=== PATIENT | male | born 1985 | race Caucasian/White ===

== ENCOUNTER 2022-01-28 14:47 | Emergency (ER) | payer OTHER, SELFPAY ==
[2022-01-28 14:47] VITALS: BP 159/101; PULSE 100; RESP 16; TEMP 36.1; O2SAT 96; BMI 31.5
[2022-01-28] MEDS: OXYMETAZOLINE NASAL SPRAY 15 ML 2 SPRAYS NASAL (15:03)
--- NOTE | 2022-01-28 15:38 | ED_ITS ---
HPI - Epistaxis General Chief complaint: Nasal Problem Stated complaint: Nose Bleed Time Seen by Provider: 01/28/22 15:36 Source: patient Mode of arrival: Ambulatory Limitations: no limitations History of Present Illness HPI Narrative: This is a 36-year-old male who presents with epistaxis from the left side. Patient states he has had some mild bleeding for the last day or so. He had nose bleeds at a young age had cautery but has not had any in many years. He states he was camping recently they had a propane heater in the tent and was very very dry and he suspect this may have initiated the nose bleed. Patient denies any trauma or injury. It has been only from the left side. 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 Patient has not had any dizziness, no lightheadedness, no chest pain shortness of breath, no nausea or vomiting. He did feel like some was going down the back of his throat but that is no longer o ccurring. Related Data Allergies Allergy/AdvReac Type Severity Reaction Status Date / Time No Known Drug Allergies Allergy Verified 01/28/22 15:08 Review of Systems Review of Systems ROS Unobtainable: All systems reviewed & are unremarkable except as noted in HPI and below Patient History Social History Smoking Status: Current some day smoker Smoking Status: Current some day smoker alcohol intake frequency: a few times a week Substance Use Type: does not use Exam Narrative Exam Narrative: GEN: well nourished, well appearing male, alert and oriented x 3, patient appears to be in mild distress. HEENT: Atraumatic, pupils are equal round reactive to light, extraocular movements are intact, right nare is clear, left nare has dried blood but no active bleeding. Appears to be from the anterior nares. Are clear with no fluid, there is no conjunctival pallor. Throat is clear without any exudates, erythema, tonsillar enlargement or uvular deviation HEART: Regular rate and rhythm without murmur, clicks, rubs. LUNGS:Lungs clear to auscultation, no wheezes, rales, crackles, chest moves symmetrically MSCL: full range of motion, normal gait NEURO:CN 2-12 intact, sensation normal SKIN: No rash, erythema or other skin changes. Initial Vital Signs Initial Vital Signs: Vital Signs Temperature 97 F L 01/28/22 14:47 Pulse Rate 100 H 01/28/22 14:47 Respiratory Rate 16 01/28/22 14:47 Blood Pressure 159/101 H 01/28/22 14:47 Pulse Oximetry 96 01/28/22 14:47 Course Orders Ordered: Discontinued Medications Lidocaine/Sodium Bicarbonate (Lido 1%/Sod Bicarb 8.4% (10ml) 10 Ml Syringe) 10 ml INJ NOW ONE Stop: 01/28/22 16:49 Oxymetazoline HCl (Oxymetazoline Nasal [place] 15 Ml) 2 sprays NASAL NOW ONE Stop: 01/28/22 15:00 Last Admin: 01/28/22 15:03 Dose: 2 sprays Documented by: LETTY Silver Nitrate/Potassium Nitrate (Silver Nitrate Stick) 1 each TOP NOW ONE Stop: 01/28/22 16:49 Vital Signs Vital signs: Vital Signs - 8 hr 01/28/22 14:47 Temperature 97 F L Pulse Rate 100 H Respiratory Rate 16 Blood Pressure 159/101 H Pulse Oximetry 96 MDM - Epistaxis MDM Narrative Medical decision making narrative: 36-year-old male with epistaxis from the left with possible very dry environment that initiated his episode. Patient had Afrin and nasal clamp ear and seems to have resolved his bleeding. It is seems to be an anterior bleed although I cannot seen exact source now that the bleeding has stopped. Discussed patient may use nasal clamp and Afrin again if recurs Vaseline and making sure you modified air. He does have a history of hypertension he is somewhat hypertensive today but is not on anticoagulation. Return precautions discussed. Patient was also given referral to ENT if he has persistent or recurring episodes that would be appropriate for follow-up. Patient discharged home with nasal clamp and Afrin from the emergency department. Discharge Plan Departure Patient Disposition: Home Clinical Impression: Epistaxis Instructions: DI for Nosebleed Activity Restrictions/Additional Instructions: Follow-up with the ENT specialist provided. Follow directions as noted below. Return to emergency department if self-care directions do not work and you are unable to stop the bleeding, or if you become lightheaded, began vomiting. Use medications as directed. Nosebleed self-care - With the right self-care, most nosebleeds stop on their own. Here's what you should do: 1. Blow your nose. This might increase the bleeding for a moment, but that's OK. 2. Sit or stand while bending forward a little at the waist. DO NOT lie down or tilt your head back. 3. Pinch the soft area towards the bottom of your nose, below the bone (picture 1). DO NOT credit collection specialist the bridge of your nose between your eyes. That will not work. DO NOT press on just 1 side, even if the bleeding is only on 1 side. That will not work either. 4. Squeeze your nose shut for at least 15 minutes. (In children, squeeze for only 5 minutes.) Use a clock to time yourself. Do not release the pressure before the time is up to check if the bleeding has stopped. If you keep checking, you will ruin your chances of getting the bleeding to stop. If you follow these steps, and your nose keeps bleeding, repeat all the steps once more. Apply pressure for a total of at least 30 minutes (or 10 minutes for children). If you are still bleeding, go to the emergency room or an urgent care clinic. What if I get repeated nosebleeds? - Frequent nosebleeds can be caused by: Breathing dry air all the time Using cold or allergy nasal sprays too much Frequent colds Snorting drugs into your nose, such as cocaine In some cases, repeat nosebleeds can be a sign that your blood does not clot like it should. If that is the case, there are often other clues. For instance, people with clotting problems bruise easily and might bleed more than you would expect after a small cut or scrape. Nosebleed treatment - If you end up seeing a doctor or nurse for your nosebleed, he or she will make sure you can breathe OK. Then he or she will try to get the bleeding to stop. To do that, he or she might have to put a device or some packing material up your nose. What can I do to keep from getting nosebleeds? - You can: Use a humidifier (a machine that makes the air less dry) in your bedroom when you sleep Keep the inside of your nose moist with a nasal saline spray or gel Not pick your nose, or at least clip your nails before you do to avoid injury Referrals: Cory Thomas MD [Physician] - Miscellaneous,MD Bri [Primary Care Provider] -
--- NOTE | 2022-01-28 15:58 | ED_ITS ---
HPI - Pediatric HENT General Chief complaint: Nasal Problem Stated complaint: Nose Bleed Time Seen by Provider: 01/28/22 15:36 Source: patient Mode of arrival: Ambulatory Limitations: no limitations Related Data Allergies Allergy/AdvReac Type Severity Reaction Status Date / Time No Known Drug Allergies Allergy Verified 01/28/22 15:08 Patient History Social History Smoking Status: Current some day smoker Smoking Status: Current some day smoker alcohol intake frequency: a few times a week Substance Use Type: does not use Pediatric Exam Initial Vital Signs Initial Vital Signs: Vital Signs Temperature 97 F L 01/28/22 14:47 Pulse Rate 100 H 01/28/22 14:47 Respiratory Rate 16 01/28/22 14:47 Blood Pressure 159/101 H 01/28/22 14:47 Pulse Oximetry 96 01/28/22 14:47 Course Orders Ordered: Discontinued Medications Oxymetazoline HCl (Oxymetazoline Nasal [place] 15 Ml) 2 sprays NASAL NOW ONE Stop: 01/28/22 15:00 Last Admin: 01/28/22 15:03 Dose: 2 sprays Documented by: LETTY Vital Signs Vital signs: Vital Signs - 8 hr 01/28/22 14:47 Temperature 97 F L Pulse Rate 100 H Respiratory Rate 16 Blood Pressure 159/101 H Pulse Oximetry 96 Discharge Plan Departure Referrals: Miscellaneous,DoctorMD [Primary Care Provider] -
== END 2022-01-28 17:12 | disposition home or self-care (01) ==
PROVIDERS: Emergency Provider Emergency Medicine
DX: R04.0 Epistaxis (principal)
CPT/HCPCS: 99282; A9270